=== PATIENT | male | born 1970 | race Caucasian/White ===

== ENCOUNTER → 2018-07-03 | Outpatient (CLI) | payer OTHER ==
[2018-07-09 10:08] LABS: COTININE 44.8 ng/mL (.); NICOTINE 42.1 ng/mL (.)
== END | disposition home or self-care (01) ==
LOC: LAB SHORT 16:08 → LAB 16:08 → LAB FUT 06-19 11:40 → EDSTATUS 06-19 11:40
PROVIDERS: Radiology Diagnostic Radiology
DX: F17.211 Nicotine dependence, cigarettes, in remission (principal)
CPT/HCPCS: G0480

== ENCOUNTER → 2018-11-02 | Outpatient (CLI) | payer OTHER | END | disposition home or self-care (01) | LOC: LAB SHORT 16:27 → LAB 16:27 | DX: F17.211 Nicotine dependence, cigarettes, in remission (principal) | CPT/HCPCS: G0480 ==

== ENCOUNTER 2019-04-08 09:28 | Day surgery (SDC) | payer OTHER ==
[~2019-04-08] VITALS: Ht 185.4 cm; Wt 63.6 kg
[~2019-04-08 09:28] MED LIST: ATOR20 PO; Aspir 8181 MG PO; OMEPRAZOLE20 MG PO
--- NOTE | 2019-04-08 11:21 | NUR ---
1121 PATIENT LEFT RECOVERY ROOM FOR PROCEDURE.
--- NOTE | 2019-04-08 12:38 | NUR ---
1215 [facility]. Right femoral groin site with dressing CDI, no c/o pain at this time, VVS, watching TV, coffee and lunch tray at the bedside. SR up x 2 call light in reach. Patient placed on the monitor.
--- NOTE | 2019-04-08 15:06 | NUR ---
1500 Patient up and to the restroom, voided. Patient dressed and gathered all belongings. PIV to the left AC discontinued and pressure dressing applied. Reviewed all discharge instructions, groin siote care, medication reconcilation, and follow up appointment. Patient verbalized understanding. No further questions. Called brother in law to drive home and will meet us at the patient emtrance. Patient escorted ambulatory to the exit and met with brother @ [id number].
== END 2019-04-08 15:32 | disposition home or self-care (01) ==
LOC: MHTC 09:28
DX: I70.213 Atherosclerosis of native arteries of extremities with intermittent claudication, bilateral legs (principal); I70.8 Atherosclerosis of other arteries; E78.5 Hyperlipidemia, unspecified; Z87.891 Personal history of nicotine dependence; Z79.82 Long term (current) use of aspirin; Z79.899 Other long term (current) drug therapy
CPT/HCPCS: 37221; 75625; 75716; 75774; 99152; 99153; C1760; C1769; C1874; C1887; C1894; J1644; J2250; J3010; J7030; Q9967

== ENCOUNTER 2019-09-29 11:50 | Emergency (ER) | payer OTHER ==
[~2019-09-29] VITALS: Ht 185.4 cm; Wt 63.5 kg
[2019-09-29 13:54] LABS: Source, Urine Clean Catch
[2019-09-29 14:18] LABS: Bilirubin, Urine Neg (Neg); Blood, Urine 1+ (Neg); Glucose Qualitative, Urine Neg (Neg); Ketones, Urine Neg (Neg); Leukocyte Esterase, Urine 1+ (Neg); Nitrite, Urine Neg (Neg); Protein, Urine Neg (Neg); Specific Gravity, Urine 1.015 (1.003-1.022); Urobilinogen, Urine NORM (Normal); pH, Urine 6.5 (5.0-8.0)
[2019-09-29 14:27] LABS: Appearance, Urine Clear (Clear); Color, Urine Yellow (P-Yellow)
[2019-09-29 14:29] LABS: Bacteria Few /hpf; Red Blood Cells, Urine 0-2 /hpf (0-2); Squamous Epithelial Cells Rare /hpf (Few)
[2019-09-29] MEDS ORDERED: Pyridium200 MG PO (15:07)
[2019-09-29] MEDS ORDERED: Percocet 5-3251 EACH PO (15:30)
== END 2019-09-29 15:31 | disposition home or self-care (01) ==
LOC: ER 11:50
PROVIDERS: Physician Assistant
DX: N47.1 Phimosis (principal); Z79.82 Long term (current) use of aspirin; Z79.899 Other long term (current) drug therapy; Z87.891 Personal history of nicotine dependence
CPT/HCPCS: 51798; 81001; 87086; 99283-25

== ENCOUNTER 2019-10-03 11:24 | Emergency (ER) | payer OTHER ==
[~2019-10-03] VITALS: Ht 185.4 cm; Wt 62.1 kg
[~2019-10-03 11:24] MED LIST changes: +Percocet 5-3251 EACH PO; +Pyridium200 MG PO
== END 2019-10-03 13:13 | disposition home or self-care (01) ==
LOC: ER 11:24
DX: Z48.816 Encounter for surgical aftercare following surgery on the genitourinary system (principal); Z87.891 Personal history of nicotine dependence; Z79.82 Long term (current) use of aspirin; Z79.899 Other long term (current) drug therapy
CPT/HCPCS: 99281

== ENCOUNTER → 2021-06-21 | Outpatient (CLI) | payer OTHER ==
[2021-06-21 15:29] LABS: Source, Urine Clean Catch
[2021-06-21 17:33] LABS: Bilirubin, Urine Neg (Neg); Blood, Urine 4+ (Neg); Color, Urine Yellow (P-Yellow); Glucose Qualitative, Urine Neg (Neg); Ketones, Urine Neg (Neg); Leukocyte Esterase, Urine 2+ (Neg); Nitrite, Urine Neg (Neg); Protein, Urine 1+ (Neg); Specific Gravity, Urine 1.005 (1.003-1.022); Urobilinogen, Urine NORM (Normal)
[2021-06-21 19:00] LABS: Appearance, Urine Hazy (Clear)
[2021-06-21 19:01] LABS: Bacteria Mod /hpf; Squamous Epithelial Cells Few /hpf (Few)
== END ==
LOC: LAB SHORT 04-23 09:15 → LAB 04-23 09:15
PROVIDERS: Physician Assistant Medical
DX: N30.90 Cystitis, unspecified without hematuria (principal)
CPT/HCPCS: 81001; 87077; 87086; 87186